=== PATIENT | male | born 1965 | race Caucasian/White ===

== ENCOUNTER 2019-09-30 04:09 | Inpatient (IN) | payer OTHER, SELFPAY ==
[~2019-09-30] VITALS: Ht 170.2 cm; Wt 93.9 kg
[2019-09-30] MEDS ORDERED: LORazepam 2 MG/ML VIAL ONE (04:18)
[2019-09-30 04:39] VITALS: BP 122/71
--- NOTE | 2019-09-30 04:45 | NUR ---
PT AMBULATED TO BED 11 WITH STEADY GAIT.
--- NOTE | 2019-09-30 04:50 | NUR ---
54 Y/O MALE PATIENT PRESENTS TO ER WITH C/O GENERALIZED BODY ACHES, FEVER, AND COUGH X 1 WEEK. 10/10 PAIN. C/O NAUSEA. DENIES VOMITING, DIARRHEA, SOB. O2: 97%, RIGHT LUNG BASE WHEEZING AUSCULTATED. SIDE RAIL X1, BED IN LOW POSITION, COVID PRECAUTIONS IN PLACE. WILL CONTINUE TO MONITOR. NKDA DENIES PMH
[2019-09-30] MEDS ORDERED: NACL 0.9% 500 ML IV SCH (04:57)
--- NOTE | 2019-09-30 04:57 | NUR ---
Dr. Solano examining patient.
--- NOTE | 2019-09-30 04:59 | NUR ---
PT MOVED TO ER BED 2
[2019-09-30] MEDS ORDERED: KETOROLAC 30 MG/ML VIAL IVP ONE (05:00)
--- NOTE | 2019-09-30 05:15 | NUR ---
Respiratory Therapist at bedside for respiratory intervention.
--- NOTE | 2019-09-30 05:44 | NUR ---
X-Ray at bedside.
--- NOTE | 2019-09-30 06:00 | NUR ---
COVID, RSV, AND INFLUENZA SWABS DONE AND TAKEN TO LAB. UA COLLECTED AND TAKEN TO LAB
[2019-09-30] MEDS ORDERED: HYDROcodone/APAP 7.5/325 MG 1 TAB PO PRN (06:05)
[2019-09-30] MEDS ORDERED: ACETAMINOPHEN 325 MG TAB PO PRN (06:05)
[2019-09-30] MEDS ORDERED: ONDANSETRON 4 MG/2 ML VIAL IVP PRN (06:05)
[2019-09-30 06:14] LABS: BASOPHILS # (AUTO) 0.1 K/uL (0.00-0.22); BASOPHILS % (AUTO) 1.1 % (0.0-2.0); HEMATOCRIT 43.5 % (36-52); HEMOGLOBIN 14.6 g/dL (12.0-18.0); LYMPHOCYTES # (AUTO) 1.4 K/uL (2.0-11.5); LYMPHOCYTES % (AUTO) 18.5 % (20.5-51.1); MEAN CORPUSCULAR HEMOGLOBIN 31 pg (27-31); MEAN CORPUSCULAR HGB CONC 34 g/dL (33-37); MEAN CORPUSCULAR VOLUME 92.9 fL (80-94); MONOCYTES # (AUTO) 0.7 K/uL (0.8-1.0); MONOCYTES % (AUTO) 9.9 % (1.7-9.3); NEUTROPHILS # (AUTO) 5.3 K/uL (1.8-7.7); NEUTROPHILS % (AUTO) 70.5 % (42.2-75.2); PLATELET COUNT (AUTO) 123 K/uL (140-450); RED BLOOD CELL COUNT(AUTO) 4.68 MIL/uL (4.20-6.10); RED CELL DISTRIBUTION WIDTH 13.5 % (11.6-13.7); WHITE BLOOD COUNT (AUTO) 7.5 K/uL (4.8-10.8)
[2019-09-30] MEDS ORDERED: ACETAMINOPHEN 325 MG TAB PO ONE (06:15)
[2019-09-30] MEDS ORDERED: ACETAMINOPHEN 325 MG TAB ONE (06:16)
--- NOTE | 2019-09-30 06:21 | NUR ---
PT WILL BE ADMITTED TO [address] [place] [address], FOR R/O COVID. UNABLE TO TRANSFER TIL AFTER 7 AM
[2019-09-30 06:28] LABS: PROTHROMBIN TIME 9.9 secs (10.8-13.4)
[2019-09-30 06:29] LABS: ALBUMIN 3.4 g/dL (3.4-5.0); ANION GAP 12.8 (8-16); CARBON DIOXIDE 25.8 mmol/L (21-32); CREATININE 0.8 mg/dL (0.6-1.3); POTASSIUM 3.6 mmol/L (3.5-5.1)
[2019-09-30 06:31] LABS: D-DIMER < 100 ng/ml (0-400)
[2019-09-30 07:01] LABS: FIBRINOGEN 496 mg/dL (200-400)
[2019-09-30 07:17] LABS: RSV NEGATIVE (NEGATIVE)
[2019-09-30 07:18] LABS: APPEARANCE,URINE CLEAR (CLEAR); BILIRUBIN,URINE NEGATIVE (NEGATIVE); COLOR,URINE AMBER (YELLOW); LEUKOCYTE ESTERASE ,URINE NEGATIVE (NEGATIVE); NITRITE, URINE NEGATIVE (NEGATIVE); UGLUCOSE NEGATIVE (NEGATIVE)
--- NOTE | 2019-09-30 07:20 | NUR ---
Patient will be admitted to care of DR MCKOY. Admited to TELE. Will go to room 129A. Belongings list completed. Report to REILLY KOEHLER.
[2019-09-30 07:25] LABS: BLOOD, URINE 2+ (NEGATIVE); WBC,URINE 0-5 /HPF (0-5)
[2019-09-30 07:30] VITALS: BP 116/84
[2019-09-30 07:34] LABS: FREE T4 (FREE THYROXINE) 1.03 ng/dL (0.76-1.46); MAGNESIUM 1.7 mg/dL (1.8-2.4); PHOSPHORUS 3.1 mg/dL (2.5-4.9); THYROID STIMULATING HORMONE 1.13 uIU/mL (0.34-3.74)
[2019-09-30 07:39] LABS: BARBITURATE, URINE NEGATIVE ng/ml (NEG <=200); BENZODIAZEPINE, URINE NEGATIVE ng/mL (NEG <=200); CANNABINOID, URINE NEGATIVE ng/mL (NEG <=50); COCAINE, URINE NEGATIVE ng/mL (NEG <=300); PHENCYCLIDINE SCREEN,URINE NEGATIVE ng/mL (NEG <=25)
[2019-09-30] MEDS ORDERED: ALBUTEROL HFA MDI 90 MCG/ACTUATION 8 GM INH PRN (07:50)
[2019-09-30 07:57] LABS: OPIATE, URINE NEGATIVE ng/mL (NEG <=2000)
--- NOTE | 2019-09-30 08:13 | NUR ---
PATIENT HAS BEEN SCREENED AND CATEGORIZED MODERATE NUTRITION RISK. PATIENT WILL BE SEEN WITHIN 3-5 DAYS OF ADMISSION. 10/03/19 - 10/05/19 JAMI CALZADA MBA, RD
[2019-09-30] MEDS ORDERED: MAG SULF 2000 MG/WATER PREMIX 50 ML IV SCH (08:30)
[2019-09-30] MEDS: ZINC SULF 220 MG CAP PO SCH (08:55)
[2019-09-30] MEDS: DOCUSATE SODIUM 100 MG GELCAP PO SCH ×2 (08:55→20:17)
[2019-09-30] MEDS: ASCORBIC ACID 500 MG TAB PO SCH (08:55)
--- NOTE | 2019-09-30 08:55 | NUR ---
GAVE ORDERED DUE MEDICATIONS AT THIS TIME. PATIENT TOLERATED WELL. PATIENT IN STABLE CONDITION. BED IN LOW POSITION. CALL LIGHT AT BEDSIDE. WILL CONTINUE TO MONITOR.
[2019-09-30] MEDS: VITAMIN D 400 IU TAB PO SCH (08:56)
[2019-09-30] MEDS: NACL 0.9% 1,000 ML IV SCH ×2 (08:58→16:22)
[2019-09-30] MEDS ORDERED: OSELTAMIVIR PHOSPHATE 75 MG CAP PO SCH (09:00)
--- NOTE | 2019-09-30 09:18 | NUR ---
SEISMOGRAPH COMPUTER NOTE: Basic Screen: Yes High Risk DC Screen [place]: NIRMALA GARCIA Home Relationship: Pre-Admission Living Arrangements: Lives with Other Prior ADL Independent Current Home Health Name/Tel: N/A Current DME/02 Name/Tel: N/A Current Hospice Name/Tel: N/A Current Dialysis Name/Tel: N/A Healthcare Decision Maker: Patient Advance Directive No Physician Orders for Life Sustaining Treatment Form No Patient/Family Have Educational Needs No Discipline: Case Mgt/Social Svcs Tentative Discharge Plan/Destination: No Needs Identified Will require assistance post discharge: No Referred to Administrative Services Specialist: No Tentative Discharge Plan Summary: PATIENT IS A 54-YEAR-OLD MALE ADMITTED FOR FEVER AND POSSIBLE COVID. PATIENT HAS NO PERTINENT PMHX. PATIENT WAS ADMITTED FROM HOME. SW CONTACTD PATIENT'S NIRMALA GARCIA [phone]. PER NIRMALA, PATIENT IS INDEPENDENT WITH ALL ADLS, AND LIVES WITH HER AND HER CHILDREN. NIRMALA STATED REPORTED NO HISTORY OF SUBSTANCE ABUSE OR MENTAL HEALTH. TENTATIVE DISCHARGE PLAN IS FOR PATIENT TO RETURN HOME. NO FURTHER NEEDS IDENTIFIED. Signature: CIH PRESLEY Date: Sep 30, 2019 Time: 09:17
[2019-09-30] MEDS: CALCIUM CARB/VIT-D 500 MG/200 IU 1 TAB PO SCH (09:20)
--- NOTE | 2019-09-30 09:35 | NUR ---
ULTRASOUND AT BEDSIDE AT THIS TIME. PATIENT IN STABLE CONDITION.
--- NOTE | 2019-09-30 11:45 | NUR ---
PATIENT TALKING ON PHONE WITH FAMILY. PATIENT IN STABLE CONDITION. BED IN LOW POSITION. CALL LIGHT AT BEDSIDE. WILL CONTINUE TO MONITOR.
[2019-09-30 12:00] VITALS: BP 124/79
[2019-09-30] MEDS: PIPERACILLIN/TAZOBACTAM 3.375 GM in DEXTROSE 5% 50 ML IV SCH ×2 (13:07→20:17)
--- NOTE | 2019-09-30 14:28 | NUR ---
PATIENT SLEEPING AT THIS TIME. RESPIRATIONS EVEN AND UNLABORED. PATIENT IN STABLE CONDITION. BED IN LOW POSITION. CALL LIGHT AT BEDSIDE. WILL CONTINUE TO MONITOR.
[2019-09-30 16:00] VITALS: BP 122/72
--- NOTE | 2019-09-30 16:20 | NUR ---
PICKED UP AND GAVE PATIENT CELL PHONE AND PROFESSOR OF APOLOGETICS FROM LOBBY. PATIENT'S SPOUSE DROPPED IT OFF.
--- NOTE | 2019-09-30 18:15 | NUR ---
POSITIVE COVID 19 DR. BOYD IS AWARE.
--- NOTE | 2019-09-30 19:22 | NUR ---
RECEIVED BEDSIDE SHIFT REPORT FROM [facility] NURSE REILLY FOR CONTINUITY OF CARE. PATIENT AWAKE IN BED NO SIGNS OF DISTRESS NOTED. RESPIRATIONS EVEN AND UNLABORED ON 2L O2 VIA NC. IV INTACT AND INFUSING WITHOUT DIFFICULTY. TELE MONITOR ATTACHED AND CALL LIGHT WITHIN REACH. WILL CONTINUE TO MONITOR.
--- NOTE | 2019-09-30 19:23 | NUR ---
GAVE REPORT TO AQUATICS INSTRUCTOR NURSE ANNA FOR CONTINUITY OF CARE. PATIENT IN STABLE CONDITION.
--- NOTE | 2019-09-30 19:30 | NUR ---
GAVE REPORT TO HEAVY MOBILE EQUIPMENT OPERATOR NURSE FERNY/ELZA FOR CONTINUITY OF CARE. PATIENT IN STABLE CONDITION. Addendum: 09/30/19 at 1936 by Damaris Olguin RN WRONG PATIENT
[2019-09-30 20:00] VITALS: BP 129/72
[2019-09-30] MEDS: OSELTAMIVIR PHOSPHATE 75 MG CAP PO SCH (20:17)
--- NOTE | 2019-09-30 20:17 | NUR ---
ADMINISTERED 2100 MEDICATIONS TO PATIENT. PATIENT TOLERATED WELL NO SIGNS OF DISTRESS NOTED. RESPIRATIONS EVEN AND UNLABORED ON 2L O2 VIA NC SPO2 AT 97%. TELE MONITOR ATTACHED AND CALL LIGHT WITHIN REACH. WILL CONTINUE TO MONITOR
--- NOTE | 2019-09-30 22:04 | NUR ---
ROUNDING, PATIENT IN BED WATCHING TELEVISION NO SIGNS OF DISTRESS NOTED. RESPIRATIONS EVEN AND UNLABORED ON 2L O2 VIA NC WITH SPO2 AT 99% ALL MONITORS ATTACHED AND CALL LIGHT WITHIN REACH
[2019-10-01] VITALS: BP 123/72
[2019-10-01] MEDS: NACL 0.9% 1,000 ML IV SCH ×4 (00:04→23:10)
--- NOTE | 2019-10-01 00:30 | NUR ---
ROUNDING PATIENT WATCHING TELEVISION. NO SIGNS OF DISTRESS NOTED. RESPIRATIONS EVEN AND UNLABORED ON 2L O2 VIA NC
--- NOTE | 2019-10-01 01:40 | NUR ---
ROUNDING, PATIENT SPO2 WAS AT 88%. GOWNED UP TO TITRATE THE O2 FLOW RATE UP. BUT SAW THAT THE PATIENT WAS NOT WEARING HIS NC. I EDUCATED PATIENT ON THE IMPORTANCE OF KEEPING IT ATTACHED. PATIENT STATES HE KNOW AND JUST FORGOT TO REAPPLY AFTER RETURNING FROM THE RESTROOM. SPO2 INCREASED TO 97% AFTER APPLYING O2. WILL CONTINUE TO CLOSELY MONITOR
[2019-10-01 04:00] VITALS: BP 129/74
--- NOTE | 2019-10-01 04:40 | NUR ---
OBTAINED AM VITALS. PATIENT RESTING NO SIGN OF DISTRESS NOTED. ALL MONITORS ATTACHED AND CALL LIGHT WITHIN REACH WILL CONTINUE TO MONITOR
[2019-10-01] MEDS: PIPERACILLIN/TAZOBACTAM 3.375 GM in DEXTROSE 5% 50 ML IV SCH ×2 (05:27→13:00)
--- NOTE | 2019-10-01 05:27 | NUR ---
ADMINISTERED 0500 MEDICATION TO PATIENT. PATIENT TOLERATED WELL NO SIGN OF DISTRESS NOTED. ALL MONITORS ATTACHED AND SPO2 AT 99% WILL CONTINUE TO MONITOR
[2019-10-01 05:56] LABS: BASOPHILS % (AUTO) 0.5 % (0.0-2.0); EOSINOPHILS % (AUTO) 0.2 % (0.0-4.0); HEMATOCRIT 41.4 % (36-52); LYMPHOCYTES # (AUTO) 1.2 K/uL (2.0-11.5); MEAN CORPUSCULAR HEMOGLOBIN 31 pg (27-31); MEAN CORPUSCULAR HGB CONC 34 g/dL (33-37); MEAN CORPUSCULAR VOLUME 93.3 fL (80-94); MONOCYTES # (AUTO) 0.6 K/uL (0.8-1.0); MONOCYTES % (AUTO) 7.8 % (1.7-9.3); NEUTROPHILS # (AUTO) 5.5 K/uL (1.8-7.7); NEUTROPHILS % (AUTO) 75.5 % (42.2-75.2); PLATELET COUNT (AUTO) 105 K/uL (140-450); RED BLOOD CELL COUNT(AUTO) 4.44 MIL/uL (4.20-6.10); RED CELL DISTRIBUTION WIDTH 13.5 % (11.6-13.7); WHITE BLOOD COUNT (AUTO) 7.3 K/uL (4.8-10.8)
[2019-10-01 07:10] LABS: ALBUMIN 2.9 g/dL (3.4-5.0); ANION GAP 13.2 (8-16); CARBON DIOXIDE 28.9 mmol/L (21-32); CREATININE 0.8 mg/dL (0.6-1.3); MAGNESIUM 1.9 mg/dL (1.8-2.4); PHOSPHORUS 2.4 mg/dL (2.5-4.9); POTASSIUM 4.1 mmol/L (3.5-5.1); TOTAL BILIRUBIN 0.9 mg/dL (0.0-1.0)
[2019-10-01 07:17] LABS: CHOL/HDL RATIO 3.1 (1-4.5)
--- NOTE | 2019-10-01 07:20 | NUR ---
ENDORSED PATIENT TO DAYSHIFT NURSE FOR CONTINUITY OF CARE. PATIENT IN STABLE CONDITION.
--- NOTE | 2019-10-01 07:37 | NUR ---
RECEIVED REPORT FROM NIGHT RN. PT IN BED. AOX4, NO C/O PAIN, NO SOB, RESPIRATIONS ARE EVEN AND UNLABORED. ON 2L O2 NC. IV ON RFA 20G ON NS AT 130CC/HR. SAFETY PRECAUTIONS IN PLACE. CALL LIGHT WITHIN REACH. WILL CONT TO MONITOR
[2019-10-01 08:00] VITALS: BP 133/92
--- NOTE | 2019-10-01 08:41 | NUR ---
PIPED POCKET MACHINE OPERATOR NOTE: Basic Screen: Yes High Risk DC Screen [place]: NIRMALA GARCIA Home Relationship: Pre-Admission Living Arrangements: Lives with Other Prior ADL Independent Current Home Health Name/Tel: N/A Current DME/02 Name/Tel: N/A Current Hospice Name/Tel: N/A Current Dialysis Name/Tel: N/A Healthcare Decision Maker: Patient Advance Directive No Physician Orders for Life Sustaining Treatment Form No Patient/Family Have Educational Needs No Discipline: Case Mgt/Social Svcs Tentative Discharge Plan/Destination: No Needs Identified Will require assistance post discharge: No Referred to Vacuum Cleaner Mechanic: No Tentative Discharge Plan Summary: PATIENT IS A 54-YEAR-OLD MALE ADMITTED FOR FEVER AND POSSIBLE COVID. PATIENT HAS NO PERTINENT PMHX. PATIENT WAS ADMITTED FROM HOME. SW CONTACTD PATIENT'S NIRMALA GARCIA [phone]. PER NIRMALA, PATIENT IS INDEPENDENT WITH ALL ADLS, AND LIVES WITH HER AND HER CHILDREN. NIRMALA STATED REPORTED NO HISTORY OF SUBSTANCE ABUSE OR MENTAL HEALTH. TENTATIVE DISCHARGE PLAN IS FOR PATIENT TO RETURN HOME. NO FURTHER NEEDS IDENTIFIED. Signature: CHI PRESLEY Date: Sep 30, 2019 Time: 09:17
[2019-10-01] MEDS: ASCORBIC ACID 500 MG TAB PO SCH (09:00)
[2019-10-01] MEDS: ZINC SULF 220 MG CAP PO SCH (09:00)
[2019-10-01] MEDS ORDERED: ALBUTEROL HFA MDI 90 MCG/ACTUATION 8 GM INH PRN (09:00)
[2019-10-01] MEDS: VITAMIN D 400 IU TAB PO SCH (09:00)
[2019-10-01] MEDS: OSELTAMIVIR PHOSPHATE 75 MG CAP PO SCH ×2 (09:00→21:00)
[2019-10-01] MEDS: CALCIUM CARB/VIT-D 500 MG/200 IU 1 TAB PO SCH (09:00)
[2019-10-01] MEDS: DOCUSATE SODIUM 100 MG GELCAP PO SCH ×2 (09:00→21:00)
--- NOTE | 2019-10-01 09:00 | NUR ---
DUE MEDS GIVEN. TOLERATED WELL. NOTED WITH TEMP OF 103.1. COOLING MEASURES RENDERED. PO FLUIDS ENCOURAGED. TYLENOL GIVEN ORDERED. WILL REASSESS
[2019-10-01] MEDS ORDERED: AZITHROMYCIN 250 MG TAB PO SCH (09:30)
--- NOTE | 2019-10-01 10:30 | NUR ---
RECHECKED TEMP 102.1, WILL CONTINUE COOLING MEASURES. NO OTHER COMPLAINTS AT THIS TIME
[2019-10-01 12:00] VITALS: BP 135/76
--- NOTE | 2019-10-01 12:00 | NUR ---
RECHECKED TEMP 98.8. NO C/O PAIN, NO SOB
--- NOTE | 2019-10-01 13:54 | NUR ---
DISCHARGE PLANNING: THIS IS A 54 Y/O MALE PATIENT FROM HOME, WHO CAME IN DUE TO GENERALIZED BODY PAIN AND FEVER. NO PERTINENT PAST MEDICAL HISTORY. COVID AND INF A AND B POSITIVE. MRSA AND URINE CS PENDING. BLOOD CS NO GROWTH AFTER 24 HOURS. ON TAMIFLU, AZITHROMYCIN AND ZOSYN. PULMO AND ID CONSULTS IN PLACE. ON O2 AT 3LPM/NC. DC PLAN PENDING ON PATIENT'S RESPONSE TO TREATMENT. Addendum: 10/03/19 at 1423 by Lizzie Douglas CM URINE CS NO GROWTH. BLOOD CS NO GROWTH AFTER 48 HOURS. SEEN BY ALAINA - CONTINUE SUPPLEMENTAL O2, TAMIFLU AND DEXA. ON DEXAMETHASONE, REMDESIVIR, TAMIFLU. ON O2 AT 2 LPM/NC, O2 SAT 95%. Addendum: 10/04/19 at 1316 by Flavia Watkins CM SPOKE WITH CORNEL WITH MEDICAL TO FIND THE PATIENT AN ASSIGNED PCP. THE PATIENT DOES NOT YET HAVE A PCP ASSIGNED TO HIM AT THIS TIME. Addendum: 10/04/19 at 1325 by Lizzie Douglas CM FOR [place] TODAY.
--- NOTE | 2019-10-01 14:00 | NUR ---
DUE ATB GIVEN ORDERED. PT IS AWAKE AND WATCHING TV. NO COMPLAINTS AT THIS TIME
[2019-10-01 16:00] VITALS: BP 130/84
[2019-10-01] MEDS ORDERED: COMMUNICATION ORDER MC SCH (16:30)
[2019-10-01] MEDS ORDERED: CLINICAL MONITORING MC PRN (16:35)
[2019-10-01] MEDS ORDERED: remdesivir 200 mg in NACL 0.9% 100 ML IV SCH (17:00)
--- NOTE | 2019-10-01 17:00 | NUR ---
DR. CHILDRESS CALLED AND GAVE ORDER FOR REMDESIVIR 200MG IV NOW THEN 100MG IV DAILY FOR 4 DAYS. ALSO ORDERED FOR CONVALESCENT PLASMA X2 UNITS. NOTED AND CARRIED OUT
--- NOTE | 2019-10-01 19:00 | NUR ---
IN STABLE CONDITION. WAITING FOR CONVALESCENT PLASMA FROM BLOOD BANK. WILL ENDORSE TO NEXT SHIFT
--- NOTE | 2019-10-01 19:05 | NUR ---
RECEIVED PATIENT IN STABLE CONDITION FROM AM SHIFT NURSE FOR CONTINUITY OF CARE. RESPIRATIONS EVEN, UNLABORED. SKIN WARM, DRY. CONTINUES ON O2 2L VIA NC, O2SAT 94%. IV SITE TO RIGHT FOREARM 20G PATENT/INTACT, INFUSING FLUIDS WELL. NO C/O PAIN. NO S/S ACUTE DISTRESS. CALL LIGHT WITHIN REACH. SAFETY PRECAUTION IN PLACE. ISOLATION PRECAUTIONS IN PLACE.
[2019-10-01 20:00] VITALS: BP 129/84
--- NOTE | 2019-10-01 21:15 | NUR ---
PATIENT ASLEEP WITH NO C/O PAIN. NO S/S ACUTE DISTRESS. CALL LIGHT WITHIN REACH. ISOLATION PRECAUTIONS OBSERVED BY ALL STAFF.
--- NOTE | 2019-10-01 23:05 | NUR ---
PATIENT AWAKE AND IN NO DISTRESS. DUE MEDS GIVEN. CALL LIGHT WITHIN REACH. ISOLATION PRECAUTIONS OBSERVED BY ALL STAFF.
[2019-10-02] VITALS: BP 120/76
--- NOTE | 2019-10-02 01:10 | NUR ---
MADE ROUNDS. PATIENT ASLEEP. NO S/S ACUTE DISTRESS. CALL LIGHT WITHIN REACH. ISOLATION PRECAUTIONS OBSERVED BY ALL STAFF.
--- NOTE | 2019-10-02 03:05 | NUR ---
PATIENT ASLEEP. NO S/S ACUTE DISTRESS. CALL LIGHT WITHIN REACH. ISOLATION PRECAUTIONS OBSERVED BY ALL STAFF.
[2019-10-02 04:00] VITALS: BP 128/77
[2019-10-02 05:53] LABS: EOSINOPHILS % (AUTO) 0.2 % (0.0-4.0); HEMATOCRIT 42.9 % (36-52); HEMOGLOBIN 14.3 g/dL (12.0-18.0); LYMPHOCYTES # (AUTO) 1.2 K/uL (2.0-11.5); LYMPHOCYTES % (AUTO) 20.7 % (20.5-51.1); MEAN CORPUSCULAR HEMOGLOBIN 31 pg (27-31); MEAN CORPUSCULAR HGB CONC 33 g/dL (33-37); MEAN CORPUSCULAR VOLUME 93.9 fL (80-94); MONOCYTES # (AUTO) 0.7 K/uL (0.8-1.0); MONOCYTES % (AUTO) 12.8 % (1.7-9.3); NEUTROPHILS # (AUTO) 3.8 K/uL (1.8-7.7); NEUTROPHILS % (AUTO) 66.3 % (42.2-75.2); PLATELET COUNT (AUTO) 113 K/uL (140-450); RED BLOOD CELL COUNT(AUTO) 4.57 MIL/uL (4.20-6.10); RED CELL DISTRIBUTION WIDTH 13.5 % (11.6-13.7); WHITE BLOOD COUNT (AUTO) 5.8 K/uL (4.8-10.8)
[2019-10-02 06:27] LABS: ALBUMIN 2.9 g/dL (3.4-5.0); ANION GAP 10.9 (8-16); CARBON DIOXIDE 28.8 mmol/L (21-32); CREATININE 0.7 mg/dL (0.6-1.3); POTASSIUM 3.7 mmol/L (3.5-5.1); TOTAL BILIRUBIN 0.9 mg/dL (0.0-1.0)
[2019-10-02] MEDS: NACL 0.9% 1,000 ML IV SCH ×2 (06:31→19:10)
--- NOTE | 2019-10-02 07:15 | NUR ---
RECEIVED REPORT FROM NIGHT NURSE PT IS STABLE AND AWAKE ON OXYGEN AT 3LPM VIA NC SKIN IS INTACT AND IV SITES INTACT AND PATENT. SAFETY MEASURES IN PLACE, CALL LIGHT WITHIN REACH, WILL CONTINUE TO MONITOR.
[2019-10-02 08:00] VITALS: BP 125/71
--- NOTE | 2019-10-02 08:15 | NUR ---
PT REMAINS ON 2L NC. SPO2 97% HR 86. NO DISTRESS NOTED AT THIS TIME, WILL CONTINUE TO MONITOR.
[2019-10-02] MEDS ORDERED: AZITHROMYCIN 250 MG TAB PO SCH (09:00)
--- NOTE | 2019-10-02 09:00 | NUR ---
MEDICATIONS DUE GIVEN NO DISTRESS NOTED AND DENIES PAIN, PT IS STABLE. WILL CONTINUE TO MONITOR
[2019-10-02 09:12] LABS: LACTATE DEHYDROGENASE 212 IU/L (121-224)
[2019-10-02] MEDS: OSELTAMIVIR PHOSPHATE 75 MG CAP PO SCH ×2 (09:59→20:06)
[2019-10-02] MEDS: ZINC SULF 220 MG CAP PO SCH (09:59)
[2019-10-02] MEDS: CALCIUM CARB/VIT-D 500 MG/200 IU 1 TAB PO SCH (09:59)
[2019-10-02] MEDS: ASCORBIC ACID 500 MG TAB PO SCH (10:00)
[2019-10-02] MEDS: DOCUSATE SODIUM 100 MG GELCAP PO SCH ×2 (10:00→20:06)
[2019-10-02] MEDS: VITAMIN D 400 IU TAB PO SCH (10:00)
[2019-10-02] MEDS: ENOXAPARIN 100 MG/ML SYR SUBQ SCH (10:07)
--- NOTE | 2019-10-02 11:40 | NUR ---
PT STARTED ON PLASMA TRANSFUSION AT THIS TIME. INITIAL VITAL SIGNS ARE BP 119/76 ND 83 RR 18 T 99.8 PT DENIES PAIN OR ANY REACTION WITH THE TRANSFUSION. SAFETY MEASURES IN PLACE, CALL LIGHT WITHIN REACH
[2019-10-02 12:00] VITALS: BP 127/85
--- NOTE | 2019-10-02 12:40 | NUR ---
PLASMA TRANSFUSION IS DONE AT THIS TIME PT IS STABLE AND NO REACTION NOTED DURING TRANSFUSION. SAFETY MEASURES IN PLACE AND CALL LIGHT WITHIN REACH WILL CONTINUE TO MONITOR
--- NOTE | 2019-10-02 15:00 | NUR ---
MADE ROUNDS PT IS STABLE AND SLEEPING. NO DISTRESS NOTED AND DENIES PAIN. WILL CONTINUE TO MONITOR.
[2019-10-02 16:00] VITALS: BP 130/92
[2019-10-02] MEDS: remdesivir 100 mg in NACL 0.9% 100 ML IV SCH (16:26)
--- NOTE | 2019-10-02 18:00 | NUR ---
CHECK PT VITAL SIGNS. PT IS HAVE A FEVER AT THIS TIME 100.9, GAVE TYLENOL .
[2019-10-02] MEDS: DEXAMETHASONE 4 MG TAB PO SCH (18:15)
--- NOTE | 2019-10-02 19:20 | NUR ---
ENDORSED PT TO NIGHT NURSE FOR CONTINUITY OF CARE, PT IS STABLE
--- NOTE | 2019-10-02 19:22 | NUR ---
RECEIVED BEDSIDE REPORT FROM DAY RN. PT IS AAOX4. RESPIRATIONS ARE EQUAL AND UNLABORED ON OXYGEN AT 3LPM VIA NC. PER RN NEED TO REINFORCE NC PT REMOVES FREQUENTLY. SKIN IS INTACT. IV ON L FA 22G IVF INFUSING PER ORDERS. PT TO HAVE SECOND PLASMA INFUSION TONIGHT 10/02 AT 0100. POC DISCUSSED WITH PT. SAFETY MEASURES IN PLACE, CALL LIGHT WITHIN REACH, WILL CONTINUE TO MONITOR.
[2019-10-02 20:00] VITALS: BP 135/75
--- NOTE | 2019-10-02 20:06 | NUR ---
VSS. MARCI MEDICATIONS GIVEN PER ORDERS. ALL QUESTIONS AND CONCERNS ADDRESSED. PT VERBALIZED UNDERSTANDING OF POC. ALL SAFETY MEASURES ARE IN PLACE.
--- NOTE | 2019-10-02 20:20 | NUR ---
GAVE PT SANDWICH PER REQUEST. PT SITTING UP EATING NO S/S OF DISTRESS. CALL LIGHT IS WITHIN REACH.
--- NOTE | 2019-10-02 22:00 | NUR ---
PATIENT IS LAYING COMFORTABLY IN BED. NO S/S OF DISTRESS. CALL LIGHT IS WITHIN REACH. WILL CONTINUE TO MONITOR.
[2019-10-03] VITALS: BP 116/72
--- NOTE | 2019-10-03 00:10 | NUR ---
VSS. PT DENIES PAIN. ALL NEEDS MET AT THIS TIME. CALL LIGHT IS WITHIN REACH. WILL CONTINUE TO MONITOR.
--- NOTE | 2019-10-03 01:00 | NUR ---
SPOKE WITH LAB REGARDING IF PLASMA WAS READY PER MANAGER DATA WAREHOUSING STILL NEED TO THAW. WILL F/U AN HOUR.
--- NOTE | 2019-10-03 02:30 | NUR ---
PLASMA INFUSION STARTED AT THIS TIME. VERIFIED WITH CARLOS KOEHLER. THIS IS SECOND UNIT BEING INFUSED POSSIBLE S/E EXPLAINED PT VERBALIZED UNDERSTANDING. ALL SAFETY MEASURES ARE IN PLACE. CALL LIGHT IS WITHIN REACH.WILL CONTINUE TO MONITOR.
--- NOTE | 2019-10-03 03:45 | NUR ---
PLASMA TRANSFUSION COMPLETE NO ADVERSE REACTION. VSS. PT TOLERATED WELL. WILL CONTINUE TO MONITOR.
[2019-10-03 04:00] VITALS: BP 105/44
[2019-10-03 06:22] LABS: BASOPHILS % (AUTO) 1.4 % (0.0-2.0); EOSINOPHILS % (AUTO) 0.1 % (0.0-4.0); HEMATOCRIT 41.3 % (36-52); HEMOGLOBIN 13.9 g/dL (12.0-18.0); LYMPHOCYTES # (AUTO) 0.7 K/uL (2.0-11.5); LYMPHOCYTES % (AUTO) 25.9 % (20.5-51.1); MEAN CORPUSCULAR HEMOGLOBIN 31 pg (27-31); MEAN CORPUSCULAR HGB CONC 34 g/dL (33-37); MONOCYTES # (AUTO) 0.3 K/uL (0.8-1.0); NEUTROPHILS # (AUTO) 1.7 K/uL (1.8-7.7); NEUTROPHILS % (AUTO) 61.6 % (42.2-75.2); PLATELET COUNT (AUTO) 131 K/uL (140-450); RED BLOOD CELL COUNT(AUTO) 4.44 MIL/uL (4.20-6.10); RED CELL DISTRIBUTION WIDTH 13.5 % (11.6-13.7); WHITE BLOOD COUNT (AUTO) 2.8 K/uL (4.8-10.8)
[2019-10-03] MEDS: NACL 0.9% 1,000 ML IV SCH ×2 (06:29→22:01)
--- NOTE | 2019-10-03 06:38 | NUR ---
PATIENT IS LAYING COMFORTABLY IN BED WATCHING TELEVISION. ENCOURAGE PT TO USE PRONE POSITION. PT IS STABLE SAT WELL >90% ON 3L O2 VIA NC. CALL LIGHT IS WITHIN REACH. PT IS STABLE. WILL ENDORSE TO DAY RN.
--- NOTE | 2019-10-03 07:24 | NUR ---
GAVE BEDSIDE REPORT TO DAY RN. PT ENDORSED IN STABLE CONDITION.
--- NOTE | 2019-10-03 07:31 | NUR ---
RECEIVED REPORT FROM NIGHT RN. PT IN BED. AOX4, NO C/O PAIN, NO SOB, RESPIRATIONS ARE EVEN AND UNLABORED. ON 3L O2 NC. IV ON RFA 20G ON NS AT 80CC/HR. PLAN OF CARE DISCUSSED. PT VERBALIZED UNDERSTANDING. SAFETY PRECAUTIONS IN PLACE. CALL LIGHT WITHIN REACH. WILL CONT TO MONITOR
[2019-10-03 07:34] LABS: ALBUMIN 2.9 g/dL (3.4-5.0); ANION GAP 12.4 (8-16); CARBON DIOXIDE 28.7 mmol/L (21-32); CREATININE 0.7 mg/dL (0.6-1.3); POTASSIUM 4.1 mmol/L (3.5-5.1); TOTAL BILIRUBIN 0.6 mg/dL (0.0-1.0)
[2019-10-03 08:00] VITALS: BP 116/68
[2019-10-03] MEDS: ENOXAPARIN 100 MG/ML SYR SUBQ SCH (09:00)
[2019-10-03] MEDS: VITAMIN D 400 IU TAB PO SCH (09:19)
[2019-10-03] MEDS: OSELTAMIVIR PHOSPHATE 75 MG CAP PO SCH ×2 (09:19→22:02)
[2019-10-03] MEDS: ZINC SULF 220 MG CAP PO SCH (09:19)
[2019-10-03] MEDS: CALCIUM CARB/VIT-D 500 MG/200 IU 1 TAB PO SCH (09:19)
[2019-10-03] MEDS: DOCUSATE SODIUM 100 MG GELCAP PO SCH ×2 (09:19→22:02)
[2019-10-03] MEDS: ASCORBIC ACID 500 MG TAB PO SCH (09:19)
[2019-10-03] MEDS: DEXAMETHASONE 4 MG TAB PO SCH (09:19)
--- NOTE | 2019-10-03 09:30 | NUR ---
DUE MORNING MEDS GIVEN. TOLERATED WELL
[2019-10-03 12:00] VITALS: BP 120/65
--- NOTE | 2019-10-03 12:30 | NUR ---
PT'S DAUGHTER, SURJIT [phone], WANTED TO TALK TO THE MD. DR. BLACK NOTIFIED AND WILL TALK TO DAUGHTER
--- NOTE | 2019-10-03 13:00 | NUR ---
TOOK PT OFF O2 TO ASSESS IF PT IS ABLE TO TOLERATE NOT BEING ON O2
--- NOTE | 2019-10-03 13:50 | NUR ---
88-89% O2SAT ON ROOM AIR. DR BLACK AWARE. WILL CONTINUE TO MONITOR
[2019-10-03 16:00] VITALS: BP 115/73
--- NOTE | 2019-10-03 16:15 | NUR ---
PT AWAKE WITH C/O RIGHT FOREARM PAIN. IV SITE SWELLING NOTED. STOPPED IVF AND REMOVED IV WITH LUMEN INTACT. IV INSERTED ON RIGHT HAND 22G. IVF RESUMED INFUSING WELL
[2019-10-03] MEDS: remdesivir 100 mg in NACL 0.9% 100 ML IV SCH (17:00)
--- NOTE | 2019-10-03 18:59 | NUR ---
PT IS AWAKE IN BED WATCHING TV. O2SAT 90-94% ON ROOM AIR. IN STABLE CONDITION. WILL ENDORSE TO NEXT SHIFT FOR CONTINUITY OF CARE
--- NOTE | 2019-10-03 19:34 | NUR ---
RECEIVED REPORT FROM JAYSON RN DAYSHIFT NURSE AT BEDSIDE FOR CONTINUITY OF CARE, PT IN STABLE CONDITION.
[2019-10-03 20:00] VITALS: BP 133/78
--- NOTE | 2019-10-03 20:00 | NUR ---
PT IN BED AOX4 BILINGUAL. IV SITE ON R HAND 22G INTACT AND ASYMPTOMATIC. RESPIRATIONS EVEN AND UNLABORED, LUNG SOUNDS DIMINISHED.. PT DENIES ANY PAIN OR DISTRESS. PT RUNNING NORMAL SALINE AT 80 MLS/HR. V/S FOLLOWS: T 97.8 P 79 R 17 B/P 123/73 02 95% ON ROOM AIR. ALL DROPLET PRECAUTIONS IN PLACE. ALL UNIVERSAL FALLS PRECAUTIONS IN PLACE.
--- NOTE | 2019-10-03 21:30 | NUR ---
PT SITTING UP IN BED DENIES ANY PAIN. PT 02 DROPPING TO 88 THEN UP TO ABOUT 90%, PT ENCOURAGED TO PUT O2 ON, PT SAID HE PUTS IT AT NIGHT AND PLACED IT ON. PT GIVEN ORDERED MEDICATIONS ON COLACE AND TAMIFLU, PT EDUCATION REGARDING MEDICATION AND SIDE EFFECTS, PT VERBALIZED UNDERSTANDING. PT DENIES ANY PAIN AND ALL REQUESTS ATTENDED BY STAFF. ALL DROPLET AND UNIVERSAL PRECAUTIONS IN PLACE.
--- NOTE | 2019-10-03 23:30 | NUR ---
PT IN BED SLEEPING, V/S FOLLOWS: T 97.9 P 60 R 18 B/P 124/69 02 93% ON ROOM AIR, WILL MONITOR PT ON ROOM AIR ALL PRECAUTIONS IN PLACE .
[2019-10-04] VITALS: BP 124/69
--- NOTE | 2019-10-04 02:10 | NUR ---
PT IN BED ASLEEP, NO S/S OF PAIN OR DISTRESS NOTED. PT NOTED WITH N/C OFF, 02 BOUNCING BETWEEN 86-90 02 PLACED BACK ON NARES AT 2 LITERS. IV FLUIDS OF NORMAL SALINE RUNNING AT 80MLS/HR ORDERED. ALL DROPLET AND UNIVERSAL FALLS PRECAUTIONS IN PLACE. 02 UP TO 95% WITH 2 LITERS N/C.
[2019-10-04 04:00] VITALS: BP 119/72
--- NOTE | 2019-10-04 04:00 | NUR ---
PT IN BED ON ROOM AIR V/S T 97.6 P 75 R 18 B/P 119/72 02 93% NO S/S OF PAIN OR DISTRESS NOTED.
[2019-10-04 05:50] LABS: BASOPHILS % (AUTO) 0.3 % (0.0-2.0); HEMATOCRIT 42.6 % (36-52); HEMOGLOBIN 14.2 g/dL (12.0-18.0); LYMPHOCYTES # (AUTO) 1.3 K/uL (2.0-11.5); LYMPHOCYTES % (AUTO) 21.9 % (20.5-51.1); MEAN CORPUSCULAR HEMOGLOBIN 31 pg (27-31); MEAN CORPUSCULAR HGB CONC 33 g/dL (33-37); MEAN CORPUSCULAR VOLUME 93.1 fL (80-94); MONOCYTES # (AUTO) 0.7 K/uL (0.8-1.0); MONOCYTES % (AUTO) 12.1 % (1.7-9.3); NEUTROPHILS # (AUTO) 3.9 K/uL (1.8-7.7); NEUTROPHILS % (AUTO) 65.7 % (42.2-75.2); PLATELET COUNT (AUTO) 143 K/uL (140-450); RED BLOOD CELL COUNT(AUTO) 4.57 MIL/uL (4.20-6.10); RED CELL DISTRIBUTION WIDTH 13.5 % (11.6-13.7); WHITE BLOOD COUNT (AUTO) 5.9 K/uL (4.8-10.8)
[2019-10-04 06:10] LABS: LD1 FRACTION 20 % (17-32); LD2 FRACTION 29 % (25-40); LD3 FRACTION 24 % (17-27); LD4 FRACTION 12 % (5-13); LD5 FRACTION 15 % (4-20)
[2019-10-04 06:38] LABS: ALBUMIN 2.8 g/dL (3.4-5.0); CARBON DIOXIDE 27.1 mmol/L (21-32); CREATININE 0.7 mg/dL (0.6-1.3); POTASSIUM 4.1 mmol/L (3.5-5.1); TOTAL BILIRUBIN 0.4 mg/dL (0.0-1.0)
--- NOTE | 2019-10-04 07:21 | NUR ---
RECEIVED BEDSIDE REPORT FROM TALENT PROGRAM MANAGER RN FOR CONTINUITY OF CARE. PT IS AAOX4. COOERATIVE AND ABLE TO MAKE NEEDS KNOWN. PT IS MAINLY AZERI SPEAKING. RESPIRATIONS ARE EQUAL AND UNLABORED ON RA. SKIN IS INTACT. IV ON L FA 22G IVF INFUSING PER ORDERS. POC DISCUSSED WITH PT AND PT VERBALIZED UNDERSTANDING. SAFETY MEASURES IN PLACE, CALL LIGHT WITHIN REACH. WILL ROUND FREQUENTLY ON PT THROUGHOUT THE SHIFT.
[2019-10-04 08:00] VITALS: BP 117/75
[2019-10-04] MEDS ORDERED: TAM75 PO (08:42)
[2019-10-04] MEDS ORDERED: APIX2.5 PO (08:42)
[2019-10-04] MEDS: ENOXAPARIN 100 MG/ML SYR SUBQ SCH (09:00)
[2019-10-04] MEDS: NACL 0.9% 1,000 ML IV SCH (09:08)
[2019-10-04] MEDS: VITAMIN D 400 IU TAB PO SCH (09:21)
[2019-10-04] MEDS: DOCUSATE SODIUM 100 MG GELCAP PO SCH (09:21)
[2019-10-04] MEDS: DEXAMETHASONE 4 MG TAB PO SCH (09:21)
[2019-10-04] MEDS: OSELTAMIVIR PHOSPHATE 75 MG CAP PO SCH (09:22)
[2019-10-04] MEDS: CALCIUM CARB/VIT-D 500 MG/200 IU 1 TAB PO SCH (09:22)
[2019-10-04] MEDS: ASCORBIC ACID 500 MG TAB PO SCH (09:23)
[2019-10-04] MEDS: ZINC SULF 220 MG CAP PO SCH (09:23)
--- NOTE | 2019-10-04 09:32 | NUR ---
ADMINISTERED MORNING MEDS TO PT. PT TOLERATED WELL. ALL NEEDS MET. WILL CONTINUE TO ROUND FREQUENTLY ON PT.
--- NOTE | 2019-10-04 11:21 | NUR ---
PT RESTING IN BED. ALL NEEDS MET. WILL CONTINUE TO ROUND FREQUENTLY ON PT. BED IN LOW POSITION, CALL LIGHT WITHIN REACH.
[2019-10-04 12:00] VITALS: BP 116/72
[2019-10-04 13:22] LABS: FERRITIN 1286 ng/mL (30 - 400)
--- NOTE | 2019-10-04 13:30 | NUR ---
PT DC HOME FOR SELF CARE. DISCUSSED DC TEACHING WITH PT. GAVE PT RX AND MD NOTE PROVIDED BY . PT VERBALIZED UNDERSTANDING. GAVE PT COVID-19 HANDOUTS. IV REMOVED WITH TIP INTACT. PT TOOK ALL PERSONAL BELONGINGS HOME WITH HIM. DISCUSSED SAFETY FOR PT WHEN HOME TO PREVENT SPREAD OF COVID TO HIS FAMILY. PT VERBALIZED UNDERSTANDING. PT LEFT IN STABLE CONDITION ACCOMPANIED BY HIS .
== END 2019-10-04 13:55 | disposition home or self-care (01) | DRG 871 ==
LOC: MED 04:09 → EEVIPCON 06:01 → MMU 06:01
PROVIDERS: ADMIT General Practice; ATTEND General Practice
DX: A41.9 Sepsis, unspecified organism (principal); U07.1 COVID-19; J12.89 Other viral pneumonia; J69.0 Pneumonitis due to inhalation of food and vomit; J96.01 Acute respiratory failure with hypoxia; J10.1 Influenza due to other identified influenza virus with other respiratory manifestations; E83.42 Hypomagnesemia; E83.51 Hypocalcemia; E83.39 Other disorders of phosphorus metabolism; R31.29 Other microscopic hematuria; K76.0 Fatty (change of) liver, not elsewhere classified
CPT/HCPCS: 36415; 36600; 71045; 76770; 80053; 80305; 81001; 82550; 82728; 82803; 83036; 83605; 83615; 83625; 83735; 83880; 84100; 84439; 84443; 84484; 85025; 85379; 85384; 85610; 85651; 85730; 86140; 86886; 86900; 86901; 87040; 87081; 87086; 87420; 87804; 93005; 96361; 96374; 99291; J1650; J1885; J2060; J2543; J3475; J7030; J7060; P9017; Q0092; U0003-CS